=== PATIENT | female | born 1975 | race Caucasian/White ===

== ENCOUNTER → 2020-04-19 | Outpatient (CLI) | payer MEDICAID | END | disposition home or self-care (01) | LOC: LABWHC1 11:33 | PROVIDERS: ATTEND Pediatrics Pediatric Infectious Diseases | DX: Z20.828 Contact with and (suspected) exposure to other viral communicable diseases (principal) | CPT/HCPCS: U0003; C9803 ==

== ENCOUNTER → 2020-04-20 | Outpatient (CLI) | payer MEDICAID | END | disposition home or self-care (01) | LOC: LABWHC1 09:53 | PROVIDERS: ATTEND Pediatrics Pediatric Infectious Diseases | DX: Z11.59 Encounter for screening for other viral diseases (principal) | CPT/HCPCS: U0003; C9803 ==

== ENCOUNTER → 2021-03-20 | Outpatient (CLI) | payer MEDICAID ==
[2021-03-20 20:09] LABS: Cat Epith & Dander IgE <0.10 kU/L; Dermato. farinae IgE 8.25 kU/L
[2021-03-20 20:10] LABS: Cockroach IgE <0.10 kU/L; Dog Dander IgE <0.10 kU/L
[2021-03-20 20:11] LABS: Alternaria alternata IgE <0.10 kU/L; Aspergillus fumagatus IgE <0.10 kU/L; Birch IgE <0.10 kU/L; Cladosporian herbarum IgE <0.10 kU/L; Maple (Box Elder) IgE <0.10 kU/L
[2021-03-20 20:12] LABS: Elm IgE <0.10 kU/L; Oak IgE <0.10 kU/L; Ragweed,Common IgE <0.10 kU/L
[2021-03-20 20:13] LABS: Egg White IgE <0.10 kU/L; Red Top (Bentgrass) IgE 3.02 kU/L
[2021-03-20 20:15] LABS: Codfish IgE <0.10 kU/L; Peanut IgE <0.10 kU/L; Soybean IgE <0.10 kU/L
[2021-03-20 20:17] LABS: Clam IgE <0.10 kU/L; Scallop IgE <0.10 kU/L; Shrimp IgE <0.10 kU/L; Walnut IgE (Food) <0.10 kU/L
== END | disposition home or self-care (01) ==
LOC: LABWHC1 07:10
PROVIDERS: ATTEND Internal Medicine Critical Care Medicine
DX: J45.909 Unspecified asthma, uncomplicated (principal); T78.40XA Allergy, unspecified, initial encounter
CPT/HCPCS: 36415; 82785; 85008; 86003

== ENCOUNTER → 2021-10-03 | Outpatient (CLI) | payer MEDICAID, OTHER | END | disposition home or self-care (01) | LOC: LABWHC1 12:04 | PROVIDERS: ATTEND Emergency Medicine | DX: U07.1 COVID-19 (principal) | CPT/HCPCS: 87635 ==

== ENCOUNTER → 2021-10-17 | Outpatient (CLI) | payer MEDICAID, OTHER ==
--- NOTE | 2021-10-17 11:19 | XR ---
EXAMINATION TYPE: XR chest 2V DATE OF EXAM: 10/17/2021 COMPARISON: Prior chest x-ray August 24, 2020 HISTORY: SOB. Recent Covid. TECHNIQUE: Frontal and lateral views of the chest are obtained. FINDINGS: There is no focal air space opacity, pleural effusion, or pneumothorax seen. The cardiac silhouette size is within normal limits. The osseous structures are intact. Cholecystectomy clips a re redemonstrated on lateral view. IMPRESSION: No acute or chronic pulmonary process. No significant change from prior.
== END | disposition home or self-care (01) ==
LOC: RADXRMAIN 11:03
PROVIDERS: ATTEND Internal Medicine Critical Care Medicine
DX: R06.02 Shortness of breath (principal); Z86.16 Personal history of COVID-19
CPT/HCPCS: 71046

== ENCOUNTER → 2022-08-21 | Outpatient (CLI) | payer MEDICAID ==
[2022-08-21 17:54] LABS: HCT 39.9 % (37.2-46.3); HGB 12.9 g/dL (12.0-15.0); MCH 28.2 pg (27.0-32.0); MCHC 32.3 g/dL (32.0-37.0); MCV 87.3 fL (80.0-97.0); Mean Platelet Volume 10.9 fL (9.5-12.2); NRBC Per 100 WBC 0 /100 WBCS (0.0-0.0); Platelet Count 254 X 10*3/uL (140-440); RBC 4.57 X 10*6/uL (4.10-5.20); RDW 12.7 % (11.5-14.5); WBC 7.77 X 10*3/uL (4.50-10.00)
[2022-08-21 18:41] LABS: African American GFR (CKD) 100.2 (60.0-200.0); Anion Gap 12.3 mmol/L (10.00-18.00); BUN/Creat Ratio 13.46 Ratio (12.00-20.00); Blood Urea Nitrogen 10.9 mg/dL (9.0-27.0); Calcium 9.6 mg/dL (8.7-10.3); Carbon Dioxide 26.4 mmol/L (20.0-27.5); Non-African American GFR(CKD) 86.5 (60.0-200.0); Potassium 3.7 mmol/L (3.5-5.5)
== END | disposition home or self-care (01) ==
LOC: LABWHC1 14:13
PROVIDERS: ATTEND Internal Medicine Cardiovascular Disease
DX: R42 Dizziness and giddiness (principal)
CPT/HCPCS: 36415; 80048; 84443; 85027

== ENCOUNTER → 2022-09-16 | Outpatient (CLI) | payer MEDICAID ==
--- NOTE | 2022-09-16 11:55 | CA ---
Exercise Stress Test Report Name: Willow Rhodes Exam Date: 09/16/2022 09:14 Exam Location: [facility] Ht (in): 65 Wt (lb): 140 BSA: 1.70 Ordering Phys: Mitul Dao MD Referring Phys: Sylwia,, Technologist: Tani Trevino Age: 47 Gender: F : 1975 Procedure CPT: Indications: R42 dizziness and giddiness ICD-10 Codes: Patient History: Medications: SYNTHROID, INHALER Meds past 24 hrs: Pretest Chest Pain: STRESS TEST Timbo Protocol Exercise Duration (min:sec): 11:[address] Depressions (mm): Angina Score: Olvera Score: Resting HR (bpm): 60 Peak HR (bpm): 169 Resting BP (mmHg): 126 / 84 Peak BP (mmHg): 194 / 76 MPHR: 173 Target HR: 147 % MPHR: 98 METS: 12.1 Total Dose: Peak Dose: Atropine: Double Product: 79104 BP Response: Stress Termination: Reached target heart rate Stress Symptoms: NO SYMPTOMS Stress Summary: ECG ANALYSIS Resting ECG: Normal sinus rhythm normal axis normal intervals Stress ECG: Patient exercised on Timbo protocol for a total of 11 minutes achieving 12 mets 85% of predicted maximal heart rate without chest pain or diagnostic ST segment depression CONCLUSIONS Excellent exercise tolerance Negative stress test by EKG criteria Dr. Mitul Dao MD (Electronically Signed) Final Date: 16 September 2022 11:54
== END | disposition home or self-care (01) ==
LOC: RADNMMAIN 07:13
PROVIDERS: ATTEND Internal Medicine Cardiovascular Disease
DX: R42 Dizziness and giddiness (principal)
CPT/HCPCS: 93017

== ENCOUNTER → 2022-09-17 | Outpatient (CLI) | payer MEDICAID ==
--- NOTE | 2022-09-21 05:35 | HM ---
HOLTER MONITOR REPORT This is a 24-hour Holter. INDICATION: Dizziness. Underlying rhythm is sinus with an average heart rate of 73 beats per minute. Heart rate varied from 45 beats per minute to 136 beats per minute. Rare PVCs are noted. There were episodes of sinus tachycardia and sinus bradycardia. CONCLUSION: This 24-hour Holter reveals sinus rhythm with sinus bradycardia and sinus tachycardia and rare PVCs. MMODL / IJN: [id number] /
== END | disposition home or self-care (01) ==
LOC: RADECHMAIN 11:41
PROVIDERS: ATTEND Internal Medicine Cardiovascular Disease
DX: R00.0 Tachycardia, unspecified (principal); R00.1 Bradycardia, unspecified; R42 Dizziness and giddiness
CPT/HCPCS: 93225; 93226

== ENCOUNTER → 2023-07-21 | Outpatient (CLI) | payer MEDICAID ==
--- NOTE | 2023-07-28 12:19 | MR ---
EXAMINATION TYPE: MR knee LT wo con DATE OF EXAM: 07/21/2023 COMPARISON: Radiograph 07/15/2023 HISTORY: 48-year-old female Pain behind Left knee into lower leg and lt foot numbness TECHNIQUE: Multiplanar, multisequence imaging of the left knee is performed without IV contrast. FINDINGS: The ACL, PCL, MCL, and LCL complex are intact. There is degenerative signal at the junction of the posterior horn and body of the medial meniscus wi thout discrete meniscal tear. Lateral meniscus is intact. Tricompartmental articular cartilage volumes are maintained. Extensor mechanism is intact. Mild edema within the suprapatellar fat pad as seen previously. Small, physiologic joint effusion. There is now a small leaking Francis's cyst present measuring 2.3 x 1.1 cm. Considerably smaller than t hat seen on patient's prior 2013 exam. Normal popliteal artery anatomy and muscle bulk. No suspicious bone marrow replacement. IMPRESSION: 1. Small leaking Francis cyst measuring 2.3 x 1.1 cm. Considerably smaller in size than the patient's p rior 2013 exam. 2. Small amount of edema within the suprapatellar fat pad is nonspecific but may be seen in the setti ng of fat pad impingement syndrome. Clinically correlate.
== END | disposition home or self-care (01) ==
LOC: RADMRIMAIN 14:45
PROVIDERS: ATTEND Orthopaedic Surgery
DX: M66.0 Rupture of popliteal cyst (principal); M25.562 Pain in left knee; R60.0 Localized edema

== ENCOUNTER → 2023-11-20 | Outpatient (CLI) | payer MEDICAID ==
[2023-11-20 15:30] LABS: Basophils # (A) 0.04 X 10*3/uL (0.00-0.10); Basophils % (A) 0.6 %; Eosinophils # (A) 0 X 10*3/uL (0.04-0.35); Eosinophils % (A) 0 %; HCT 41.3 % (37.2-46.3); HGB 13.1 g/dL (12.0-15.0); Lymphocytes # (A) 2.86 X 10*3/uL (0.90-5.00); Lymphocytes % (A) 42.9 %; MCH 28.3 pg (27.0-32.0); MCHC 31.7 g/dL (32.0-37.0); MCV 89.2 FL (80.0-97.0); Mean Platelet Volume 11.1 FL (9.5-12.2); Monocytes # (A) 0.54 X 10*3/uL (0.20-1.00); Monocytes % (A) 8.1 %; NRBC Per 100 WBC 0 X 10*3/uL (0.00-0.01); Neutrophils % (A) 48.1 %; Platelet Count 248 X 10*3/uL (140-440); RBC 4.63 X 10*6/uL (4.10-5.20); RDW 12.7 % (11.5-14.5); WBC 6.66 X 10*3/uL (4.50-10.00)
[2023-11-20 15:41] LABS: Anion Gap 8.9 mmol/L (4.00-12.00); Carbon Dioxide 28.1 mmol/L (21.6-31.8); Potassium 4.3 mmol/L (3.5-5.5)
== END | disposition home or self-care (01) ==
LOC: LABPAT 09:18
PROVIDERS: ATTEND Orthopaedic Surgery
DX: Z01.812 Encounter for preprocedural laboratory examination (principal); M23.92 Unspecified internal derangement of left knee
CPT/HCPCS: 36415; 80051; 85025

== ENCOUNTER 2023-12-11 11:09 | Day surgery (SDC) | payer MEDICAID ==
[2023-12-05 17:08] VITALS: BMI 23.9
--- NOTE | 2023-12-10 17:58 | HP ---
HISTORY AND PHYSICAL DATE OF SURGERY: 12/11/2023. HISTORY OF PRESENT ILLNESS: Willow Rhodes is a 48-year-old patient, seen with progressive left knee pain. We discussed options regarding treatment. She elected to proceed with left knee arthroscopy. Consent was obtained. PAST MEDICAL HISTORY: Asthma. PAST SURGICAL HISTORY: Appendectomy, hysterectomy, knee arthroscopy, cholecystectomy. DAILY MEDICATIONS: Finasteride. ALLERGIES: None. SOCIAL HISTORY: She denies tobacco use. PHYSICAL EVALUATION OF THE LEFT KNEE: Range of motion is 0 to 130 degrees. Mild effusion. Tenderness, medial joint line. Positive medial Onel's. Ligaments stable. Hip rotation without pain. Distal neurovascular exam is intact. IMAGING STUDIES: Left knee radiographs revealed mild osteoarthritis. MRI of left knee revealed abnormal signal in medial meniscus along with a Francis cyst. IMPRESSION: 1. Internal derangement of left knee with medial meniscal tear. 2. Asthma. PLAN: Left knee arthroscopy with partial medial meniscectomy and debridement. MMODL / IJN: [id number] /
[2023-12-11] MEDS: LACTATED RINGERS 1,000 ML IV SCH (12:06)
[2023-12-11] MEDS: DEXAMETHASONE SOD PHOSPHATE 4 MG/ML 1 ML VIAL IV ONE (12:09)
[2023-12-11] MEDS: ONDANSETRON 4 MG/2 ML VIAL IVP ONE (12:09)
[2023-12-11] MEDS ORDERED: fentaNYL (PF) 50 MCG/ML 2 ML AMP ONE (12:30)
[2023-12-11] MEDS ORDERED: PROPOFOL 10 MG/ML 20 ML VIAL IV ONE (12:30)
[2023-12-11] MEDS ORDERED: MIDAZOLAM 2 MG/2 ML VIAL ONE (12:30)
[2023-12-11] MEDS ORDERED: LIDOCAINE 1% INJ 10MG/ML (20 ML MDV) ONE (12:30)
[2023-12-11] MEDS: SODIUM CHLORIDE 0.9% 50 ML with ceFAZolin 1,000 MG IV ONE (12:35)
[2023-12-11] MEDS: SODIUM CHLORIDE 0.9% 50 ML with ceFAZolin 2,000 MG IV ONE (12:35)
[2023-12-11] MEDS: ceFAZolin 1 GM in DEXTROSE/WATER 1 50ML.BAG IVPB PRN (12:35)
[2023-12-11] MEDS: BUPIVACAINE (PF) 0.25% 30 ML VIAL SQ ONE ×2 (13:01→13:12)
--- NOTE | 2023-12-11 13:30 | P.OP ---
Date of Procedure: 12/11/23 Preoperative Diagnosis: Internal derangement left knee Postoperative Diagnosis: 1. Tear medial meniscus left knee 2. Reactive synovitis medial, lateral and suprapatellar compartments left knee 3. 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 Grade I chondromalacia lateral tibial plateau left knee Procedure(s) Performed: 1. Arthroscopic partial medial meniscectomy left knee 2. Arthroscopic partial synovectomy medial, lateral and suprapatellar compartments left knee 3. Arthroscopic chondroplasty medial femoral condyle left knee 4. Arthroscopic chondroplasty lateral tibial plateau left knee Anesthesia: GETA, local Surgeon: Zana Tay Estimated Blood Loss (ml): 5 Pathology: none sent Condition: stable Disposition: PACU Indications for Procedure: 48-year-old patient seen with progressive left knee pain. After having treatment options discussed, she elected to proceed with arthroscopy. Operative Findings: See description of procedure Description of Procedure: Patient was taken to the operative suite. Patient underwent a general anesthetic by the department of anesthesia. Patient was given preoperative antibiotics. The left lower extremity was placed in a well-padded arthroscopic leg pike. The left leg was prepped and draped in the normal sterile orthopedic fashion. A lateral parapatellar and suprapatellar incision was made. Trochars were inserted. Arthroscopy was initiated. Suprapatellar pouch revealed diffuse thick reactive synovitis. The patellofemoral joint appeared to articular congruently. There was no significant chondromalacia present. The scope was guided into the medial gutter. No loose bodies or plica were identified. The scope was then guided into the medial compartment. A medial parapatellar incision was made. Trocar inserted followed by probe. There was a radial tear posterior horn medial meniscus. There were grade I chondromalacia changes the medial femoral condyle with some small osteochondral flap tears. There was thick reactive synovitis anteriorly. I performed a partial medial meniscectomy getting down to stable meniscal tissue. I performed a chondroplasty of the medial femoral condyle getting down to stable osteochondral tissue. I performed a partial synovectomy decompressing the reactive synovitis. The residual meniscus was probed and was found to be stable. The residual osteochondral surface was stable. There was good decompression of the synovitis. Scope and probe were then guided into the intercondylar notch. Cruciates were identified, probed and found to be stable. The scope and probe were then guided into lateral compartment. The lateral meniscus was probed and was found to be stable. There was an area of grade I chondromalacia lateral tibial plateau with a osteochondral flap tear present. There was some thick reactive synovitis. I introduced a motorized shaver and performed a chondroplasty to the tibial plateau getting down to stable osteochondral tissue. I performed a partial synovectomy decompressing the reactive synovitis. The residual osteochondral surface appeared stable. There was good decompression of the synovitis. The scope was in guided back into the suprapatellar compartment. I introduced a motorized shaver into the suprapatellar compartment. I performed a partial synovectomy. The shaver was now removed. There was good decompression of the synovitis. I now took 1 more look around the entire knee, no residual debris. Instruments were now removed from the joint. The joint was infiltrated with .25% Marcaine. Steri-Strips were applied to the portal sites. Sterile dressings were applied. The patient was placed into a JJ hose. No tourniquet was utilized. The patient was awakened, transferred to a bed and taken to recovery stable satisfactory condition.
[2023-12-11] MEDS: HYDROmorphone 0.5 MG/0.5 ML SYRINGE IVP PRN (13:40)
[2023-12-11 14:00] VITALS: RESP 16; TEMP 97.2
[2023-12-11] MEDS: IBUPROFEN 600 MG TAB PO ONE (14:21)
[2023-12-11 14:36] VITALS: BP 132/83; PULSE 64
== END 2023-12-11 14:42 | disposition home or self-care (01) ==
LOC: OR 11:09
PROVIDERS: ATTEND Orthopaedic Surgery
DX: S83.242A Other tear of medial meniscus, current injury, left knee, initial encounter (principal); M65.862 Other synovitis and tenosynovitis, left lower leg; M94.262 Chondromalacia, left knee; J45.909 Unspecified asthma, uncomplicated; Z90.49 Acquired absence of other specified parts of digestive tract; Z90.710 Acquired absence of both cervix and uterus; Z98.890 Other specified postprocedural states; Z79.899 Other long term (current) drug therapy; X58.XXXA Exposure to other specified factors, initial encounter
CPT/HCPCS: 29881; 29876; J2250; J1100; J2405; J0690; J2001; J3010; J2704; J1170; J0665

== ENCOUNTER → 2024-03-03 | Outpatient (CLI) | payer MEDICAID ==
[2024-03-03 15:30] LABS: T4, Free (Free Thyroxine) 0.92 ng/dL (0.80-1.80)
== END | disposition home or self-care (01) ==
LOC: LABWHC1 08:29
PROVIDERS: ATTEND Internal Medicine Critical Care Medicine
DX: E03.9 Hypothyroidism, unspecified (principal)
CPT/HCPCS: 36415; 84439; 84443